=== PATIENT | male | born 1995 | race African-American/Black ===

== ENCOUNTER 2018-07-11 10:24 | Emergency (ER) | payer MEDICAID, OTHER ==
[~2018-07-11] VITALS: Ht 185.4 cm; Wt 74.8 kg
[~2018-07-11 10:24] MED LIST: CARAFATE1 G1 ORAL; PROTONIX40 MG ORAL
[2018-07-11 10:34] VITALS: BP 120/79
--- NOTE | 2018-07-11 10:36 | NUR ---
ED Nurse Note: Pt came in from home due to L eye swelling, redness with irritation and blurring since Monday07/08/18, tearing noted. Visual acuity in Intervention. Pain 4/10 grace. AOx4, VSS. Will cont to monitor.
--- NOTE | 2018-07-11 11:58 | Emergency Room Report ---
History of Present Illness General Chief Complaint: Eye Problems Source: Patient Present Illness HPI Patient is a 22-year-old male presented after increased left thigh discomfort and swelling. Patient had onset approximate 2 days ago. He denies any fever. Patient reports having some crusting to his eyes. He had used allergy drops [id number]. He denies any fever. He reportedly had not been having any cough or other problems in other locations of his body. He denies any difficulty breathing. He denies any significant visual changes. Patient normally wears eyeglasses. Allergies: Coded Allergies: No Known Allergies (Verified Allergy, Unknown, 07/24/10) Patient History Past Medical History: see triage record Reviewed Nursing Documentation: PMH: Agreed; PSxH: Agreed Nursing Documentation-PMH Past Medical History: No History, Except For Hx Gastrointestinal Problems: Yes - gastric ulcer x 3 Review of Systems All Other Systems: negative except mentioned in HPI Physical Exam Vital Signs Date Time Temp Pulse Resp B/P (MAP) Pulse Ox O2 Delivery O2 Flow Rate FiO2 07/11/18 10:28 98.1 86 16 119/78 98 Room Air General Appearance: well appearing, no apparent distress, alert, GCS 15 Head: normocephalic, atraumatic Eyes: bilateral eye other - left eye conjunctival slight edema, pupils reactive ENT: hearing grossly normal, normal voice Neck: full range of motion, supple Respiratory: no respiratory distress, speaking full sentences Cardiovascular #1: normal inspection Musculoskeletal: no calf tenderness Neurologic: normal gait Psychiatric: mood/affect normal Skin: no rash Medical Decision Making Diagnostic Impression: Primary Impression: Conjunctivitis ER Course Patient presented for left eye redness.Differential diagnosis included but wasn' t limited to glaucoma, iritis, corneal abrasion, bacterial conjunctivitis, viral conjunctivitis. Patient has a benign exam and does not appear to require any further imaging or laboratory testing at this time. Patient appears to have a viral conjunctivitis. He was noted to have some discharge and will be started on topical antibiotics. He was advised to continue his topical I allergy medications. Patient was advised to return if he began having worsening pain vision loss or other concerns. Last Vital Signs Date Time Temp Pulse Resp B/P (MAP) Pulse Ox O2 Delivery O2 Flow Rate FiO2 07/11/18 10:34 98.0 77 17 120/79 99 Room Air Status: improved Disposition: HOME, SELF-CARE Condition: Stable Ayo Jacome MD Jul 11, 2018 11:58
[2018-07-11] MEDS ORDERED: GENTAK5 ML LEFT EYE (11:59)
[2018-07-11 12:06] VITALS: BP 127/74
--- NOTE | 2018-07-11 12:07 | NUR ---
Note undone in EDM - 07/11/18 at 1207 by MARIANNE ED Nurse Note: Discharge instructions given to pt. Answered all questions. Verbalized understanding. No acute distres noted. A+ O x4. Ambulatory. Left ER w/ steady gait. Left w/ all belongings. ID band and IV site removed.
== END 2018-07-11 12:05 | disposition home or self-care (01) ==
LOC: EMR 12:00
DX: H10.9 Unspecified conjunctivitis (principal)
CPT/HCPCS: 99282